=== PATIENT | male | born 1950 | race Caucasian/White ===

== ENCOUNTER 2020-01-24 10:38 | Observation (INO) ==
[2020-01-24] MEDS ORDERED: SODIUM CHLORIDE 0.9% 1,000 ML IV STA (11:40)
[2020-01-24] MEDS ORDERED: PANTOPRAZOLE 40 MG VIAL IV STA (11:40)
[2020-01-24] MEDS ORDERED: ONDANSETRON 4 MG/2 ML VIAL IV STA (11:40)
[2020-01-24 11:55] LABS: Basophils % 0.4 % (0.0-0.8); Eosinophils # 0.1 10*3/uL (0.0-0.87); Hemoglobin 12.9 GM/DL (14.0-18.0); Immature Granulocytes % 0.3 %; Immature Granulocytes Absolute 0.02 #; Lymphocytes # 1.7 10*3/uL (1.4-4.0); Lymphocytes % 22.2 % (21.2-54.2); Mean Corpuscular HGB Conc 33.9 GM/DL (32-36); Mean Corpuscular Volume 94.3 FL (87-102); Mean Platelet Volume 10.2 FL (9.6-12.0); Monocytes % 6.6 % (1.7-12.7); Neutrophils % 69.5 % (38.7-73.9); Platelet Count 180 T/CUMM (130-400); Red Blood Count 4.03 MC/CUMM (3.8-5.5); Red Cell Distribution Width 12.7 % (9.3-17.3); White Blood Count 7.7 T/CUMM (4-12)
[2020-01-24 11:58] LABS: Partial Thromboplastin Time 27.8 SECS (23.9-33.8)
[2020-01-24 12:22] LABS: Albumin 3.7 G/DL (3.4-5.0); Bilirubin,Total 0.6 MG/DL (0.2-1.0); Calcium 9.1 MG/DL (8.5-10.1); Osmolality,Calculated 272.5 MOS/KG (273-304)
[2020-01-24] MEDS ORDERED: ACETAMINOPHEN 325 MG TABLET PO PRN (12:41)
[2020-01-24] MEDS ORDERED: ONDANSETRON 4 MG/2 ML VIAL IV PRN (12:41)
[2020-01-24] MEDS ORDERED: DEXTROSE 50% 25 GM/50 ML VIAL IV PRN (12:41)
[2020-01-24] MEDS ORDERED: GLUCAGON 1 MG VIAL IM PRN (12:41)
[2020-01-24] MEDS: SODIUM CHLORIDE 0.9% 1,000 ML IV SCH ×2 (14:56→20:47)
[2020-01-24 15:19] LABS: Hematocrit 35.6 VOL% (42.0-52.0); Hemoglobin 11.8 GM/DL (14.0-18.0)
[2020-01-24 15:36] LABS: INR 1.1; PT Patient Result 11.4 SECS (9.8-11.9); Partial Thromboplastin Time 27.9 SECS (23.9-33.8)
[2020-01-24] MEDS: INSULIN LISPRO 100 UNIT/ML SUBCUT SCH ×2 (17:03→22:14)
[2020-01-24 20:33] LABS: Hematocrit 32.3 VOL% (42.0-52.0); Hemoglobin 10.8 GM/DL (14.0-18.0)
[2020-01-24] MEDS: DOCUSATE SODIUM 100 MG CAPSULE PO SCH (20:46)
[2020-01-24] MEDS: PANTOPRAZOLE 40 MG VIAL IV SCH (20:47)
[2020-01-25 02:38] LABS: Hematocrit 34.4 VOL% (42.0-52.0); Hemoglobin 11.6 GM/DL (14.0-18.0)
[2020-01-25] MEDS ORDERED: PANTOPRAZOLE 40 MG TABLET PO SCH (06:30)
[2020-01-25] MEDS: INSULIN LISPRO 100 UNIT/ML SUBCUT SCH ×4 (07:48→21:14)
[2020-01-25 08:51] LABS: Hematocrit 32.7 VOL% (42.0-52.0)
[2020-01-25] MEDS: PANTOPRAZOLE 40 MG VIAL IV SCH ×2 (12:41→21:13)
[2020-01-25] MEDS: PIOGLITAZONE 45 MG TABLET PO SCH (12:42)
[2020-01-25] MEDS: ATORVASTATIN 10 MG TABLET PO SCH (12:42)
[2020-01-25] MEDS: lisinopriL 20 MG TABLET PO SCH (12:42)
[2020-01-25] MEDS: GLIMEPIRIDE 4 MG TABLET PO SCH (12:42)
[2020-01-25] MEDS: POTASSIUM CHLORIDE 10 MEQ TABLET PO SCH (12:42)
[2020-01-25] MEDS: DOCUSATE SODIUM 100 MG CAPSULE PO SCH ×2 (12:42→21:13)
[2020-01-25] MEDS: CHOLECALCIFEROL 1,000 UNIT TABLET PO SCH (12:42)
[2020-01-25] MEDS: MULTIVITAMIN (CENTRUM) TABLET PO SCH (12:42)
[2020-01-25] MEDS: SODIUM CHLORIDE 0.9% 1,000 ML IV SCH ×3 (12:43→21:14)
[2020-01-26] MEDS: SODIUM CHLORIDE 0.9% 1,000 ML IV SCH ×3 (05:11→21:07)
[2020-01-26] MEDS: INSULIN LISPRO 100 UNIT/ML SUBCUT SCH ×4 (07:49→20:32)
[2020-01-26] MEDS: DOCUSATE SODIUM 100 MG CAPSULE PO SCH ×2 (08:24→20:28)
[2020-01-26] MEDS: PANTOPRAZOLE 40 MG VIAL IV SCH ×2 (08:24→20:28)
[2020-01-26] MEDS: lisinopriL 20 MG TABLET PO SCH (08:24)
[2020-01-26] MEDS: POTASSIUM CHLORIDE 10 MEQ TABLET PO SCH (08:25)
[2020-01-26] MEDS: MULTIVITAMIN (CENTRUM) TABLET PO SCH (08:25)
[2020-01-26] MEDS: ATORVASTATIN 10 MG TABLET PO SCH (08:25)
[2020-01-26] MEDS: PIOGLITAZONE 45 MG TABLET PO SCH (08:25)
[2020-01-26] MEDS: GLIMEPIRIDE 4 MG TABLET PO SCH (08:25)
[2020-01-26] MEDS: CHOLECALCIFEROL 1,000 UNIT TABLET PO SCH (08:25)
[2020-01-26] MEDS ORDERED: BISACODYL 5 MG TABLET PO ONE (09:24)
[2020-01-26 10:33] LABS: Hematocrit 30.9 VOL% (42.0-52.0); Hemoglobin 10.4 GM/DL (14.0-18.0)
[2020-01-27] MEDS: SODIUM CHLORIDE 0.9% 1,000 ML IV SCH ×2 (03:49→11:23)
[2020-01-27 05:41] LABS: Hematocrit 32.7 VOL% (42.0-52.0)
[2020-01-27] MEDS ORDERED: LIDOCAINE 2% 5 ML VIAL ONE (09:00)
[2020-01-27] MEDS ORDERED: propofoL 200 MG/20 ML VIAL IV ONE (09:00)
[2020-01-27] MEDS: INSULIN LISPRO 100 UNIT/ML SUBCUT SCH ×3 (09:02→16:36)
[2020-01-27] MEDS: MULTIVITAMIN (CENTRUM) TABLET PO SCH (09:03)
[2020-01-27] MEDS: DOCUSATE SODIUM 100 MG CAPSULE PO SCH (09:03)
[2020-01-27] MEDS: GLIMEPIRIDE 4 MG TABLET PO SCH (09:03)
[2020-01-27] MEDS: ATORVASTATIN 10 MG TABLET PO SCH (09:03)
[2020-01-27] MEDS: POTASSIUM CHLORIDE 10 MEQ TABLET PO SCH (09:03)
[2020-01-27] MEDS: PIOGLITAZONE 45 MG TABLET PO SCH (09:03)
[2020-01-27] MEDS: lisinopriL 20 MG TABLET PO SCH (09:04)
[2020-01-27] MEDS: CHOLECALCIFEROL 1,000 UNIT TABLET PO SCH (09:04)
[2020-01-27] MEDS: PANTOPRAZOLE 40 MG VIAL IV SCH (09:15)
[2020-01-27 15:39] VITALS: BP 141/66
== END 2020-01-27 17:47 | disposition home or self-care (01) ==
LOC: N.ED 10:38 → INTOOBSV 11:43 → N.EDINP 11:43 → N.5E 12:40
PROVIDERS: ADMIT Family Medicine; ATTEND Family Medicine

== ENCOUNTER 2021-10-12 03:16 | Observation (INO) ==
[2021-10-12] MEDS ORDERED: PIPERACILLIN/TAZOBACTAM 3,375 MG in SODIUM CHLORIDE 0.9% 100 ML IV STA (03:57)
[2021-10-12] MEDS ORDERED: ONDANSETRON 4 MG/2 ML VIAL IV STA (03:57)
[2021-10-12] MEDS ORDERED: HYDROmorphone 1 MG/1 ML SYRINGE IV STA (03:57)
[2021-10-12 04:21] LABS: Basophils # 0.1 10*3/uL (0.0-0.2); Basophils % 0.4 % (0.0-0.8); Eosinophils # 0.1 10*3/uL (0.0-0.87); Eosinophils % 0.7 % (0.00-10.9); Hematocrit 36.1 VOL% (42.0-52.0); Immature Granulocytes % 1.6 %; Immature Granulocytes Absolute 0.21 #; Lymphocytes # 1.1 10*3/uL (1.4-4.0); Lymphocytes % 8.1 % (21.2-54.2); Mean Corpuscular HGB Conc 33.2 GM/DL (32-36); Mean Corpuscular Volume 93.5 FL (87-102); Monocytes % 7.2 % (1.7-12.7); Platelet Count 205 T/CUMM (130-400); Red Blood Count 3.86 MC/CUMM (3.8-5.5); Red Cell Distribution Width 12.9 % (9.3-17.3); White Blood Count 13.4 T/CUMM (4-12)
[2021-10-12] MEDS ORDERED: SODIUM CHLORIDE 0.9% 1,000 ML IV STA (04:21)
[2021-10-12 04:28] LABS: Albumin 2.8 G/DL (3.4-5.0); Bilirubin,Total 0.4 MG/DL (0.20-1.00); Calcium 8.4 MG/DL (8.5-10.1); Potassium 3.7 MMOL/L (3.5-5.1); Total Protein 6.3 G/DL (6.4-8.2)
[2021-10-12 04:48] LABS: Band Neutrophils 6 % (0-10); Lymphocytes 9 % (20-55); Total Cells Counted 100
[2021-10-12 04:50] LABS: Platelet Estimate Normal
[2021-10-12] MEDS ORDERED: HYDROmorphone 1 MG/1 ML SYRINGE IV PRN (05:37)
[2021-10-12] MEDS ORDERED: GLUCAGON 1 MG VIAL IM PRN (05:37)
[2021-10-12] MEDS ORDERED: ONDANSETRON 4 MG/2 ML VIAL IV PRN ×2 (05:37→14:59)
[2021-10-12] MEDS ORDERED: DEXTROSE 10% 250 ML BAG IV PRN (05:37)
[2021-10-12] MEDS ORDERED: INSULIN REGULAR 100 UNIT/ML SUBCUT SCH (06:00)
[2021-10-12] MEDS: SODIUM CHLORIDE 0.9% 1,000 ML IV SCH ×2 (06:10→17:35)
[2021-10-12] MEDS: INSULIN REGULAR 100 UNIT/ML SUBCUT SCH ×4 (07:46→21:55)
[2021-10-12] MEDS: PANTOPRAZOLE 40 MG TABLET PO SCH (08:59)
[2021-10-12] MEDS: MULTIVITAMIN (CENTRUM) TABLET PO SCH (08:59)
[2021-10-12] MEDS: CHOLECALCIFEROL 1,000 UNIT TABLET PO SCH (09:00)
[2021-10-12] MEDS ORDERED: glipiZIDE 10 MG TABLET PO SCH (09:00)
[2021-10-12] MEDS ORDERED: GLIMEPIRIDE 4 MG TABLET PO SCH (09:00)
[2021-10-12] MEDS: POTASSIUM CHLORIDE 10 MEQ TABLET PO SCH (09:00)
[2021-10-12] MEDS ORDERED: metFORMIN 500 MG TABLET PO SCH (09:00)
[2021-10-12] MEDS ORDERED: PIOGLITAZONE 45 MG TABLET PO SCH (09:00)
[2021-10-12] MEDS: ACETAMINOPHEN 325 MG TABLET PO PRN ×2 (10:00→21:57)
[2021-10-12] MEDS: PIPERACILLIN/TAZOBACTAM 3,375 MG in SODIUM CHLORIDE 0.9% 100 ML IV SCH ×2 (11:17→21:56)
[2021-10-12] MEDS ORDERED: LIDOCAINE 2% 5 ML VIAL ONE (13:24)
[2021-10-12] MEDS ORDERED: ONDANSETRON 4 MG/2 ML VIAL ONE (13:24)
[2021-10-12] MEDS ORDERED: fentaNYL 100 MCG/2 ML VIAL ONE (13:24)
[2021-10-12] MEDS ORDERED: MIDAZOLAM 2 MG/2 ML VIAL ONE (13:24)
[2021-10-12] MEDS ORDERED: propofoL 200 MG/20 ML VIAL IV ONE (13:24)
[2021-10-12] MEDS ORDERED: BUPIVACAINE MPF 0.25% 10 ML VIAL ONE (14:11)
[2021-10-12] MEDS ORDERED: LIDOCAINE 1%/EPI INJ 20 ML VIAL ONE (14:11)
[2021-10-12] MEDS ORDERED: SEVOFLURANE 1 UNIT/15 MINUTE INH ONE (14:37)
[2021-10-12] MEDS: HYDROmorphone 1 MG/1 ML SYRINGE IV PRN ×2 (15:05→15:22)
[2021-10-12] MEDS ORDERED: MELOXICAM 7.5 MG TABLET PO SCH (21:00)
[2021-10-12] MEDS ORDERED: lisinopriL 20 MG TABLET PO SCH (21:00)
[2021-10-12] MEDS ORDERED: INSULIN NPH/REGULAR 70/30 100 UNIT/ML SUBCUT SCH (21:00)
[2021-10-12] MEDS ORDERED: ATORVASTATIN 10 MG TABLET PO SCH (21:00)
[2021-10-12] MEDS ORDERED: ENOXAPARIN 40 MG/0.4 ML SYRINGE SUBCUT SCH (21:00)
[2021-10-12] MEDS ORDERED: ZINC GLUCONATE 50 MG TABLET PO SCH (21:00)
[2021-10-13] MEDS: SODIUM CHLORIDE 0.9% 1,000 ML IV SCH (04:20)
[2021-10-13] MEDS: PIPERACILLIN/TAZOBACTAM 3,375 MG in SODIUM CHLORIDE 0.9% 100 ML IV SCH (04:54)
[2021-10-13 05:03] LABS: Basophils # 0.1 10*3/uL (0.0-0.2); Basophils % 0.4 % (0.0-0.8); Eosinophils # 0.3 10*3/uL (0.0-0.87); Hematocrit 32.1 VOL% (42.0-52.0); Hemoglobin 10.6 GM/DL (14.0-18.0); Immature Granulocytes % 1.2 %; Immature Granulocytes Absolute 0.18 #; Lymphocytes # 1.6 10*3/uL (1.4-4.0); Lymphocytes % 10.5 % (21.2-54.2); Mean Corpuscular Volume 94.7 FL (87-102); Mean Platelet Volume 10.6 FL (9.6-12.0); Monocytes % 6.8 % (1.7-12.7); Neutrophils % 79.1 % (38.7-73.9); Platelet Count 194 T/CUMM (130-400); Red Blood Count 3.39 MC/CUMM (3.8-5.5); Red Cell Distribution Width 13.3 % (9.3-17.3); White Blood Count 14.9 T/CUMM (4-12)
[2021-10-13 05:24] LABS: Band Neutrophils 1 % (0-10); Eosinophils 3 % (0-10); Lymphocytes 6 % (20-55); Platelet Estimate Adequate; Total Cells Counted 100
[2021-10-13 05:26] LABS: Bilirubin,Total 0.6 MG/DL (0.20-1.00); Calcium 8.1 MG/DL (8.5-10.1); Osmolality,Calculated 278.1 MOS/KG (273-304); Potassium 4.5 MMOL/L (3.5-5.1); Total Protein 5.5 G/DL (6.4-8.2)
[2021-10-13] MEDS: MULTIVITAMIN (CENTRUM) TABLET PO SCH (08:26)
[2021-10-13] MEDS: POTASSIUM CHLORIDE 10 MEQ TABLET PO SCH (08:26)
[2021-10-13] MEDS: CHOLECALCIFEROL 1,000 UNIT TABLET PO SCH (08:26)
[2021-10-13] MEDS: PANTOPRAZOLE 40 MG TABLET PO SCH (08:26)
[2021-10-13] MEDS: INSULIN REGULAR 100 UNIT/ML SUBCUT SCH ×2 (08:27→12:12)
[2021-10-13] MEDS ORDERED: CLINDAMYCIN 300 MG CAPSULE PO SCH (12:00)
[2021-10-13 12:34] VITALS: BP 113/57
== END 2021-10-13 13:37 | disposition home or self-care (01) ==
LOC: N.ED 03:16 → N.3E 03:16
PROVIDERS: ADMIT Surgery; ATTEND Surgery

== ENCOUNTER 2021-10-15 18:42 | Inpatient (IN) ==
[2021-10-15 20:15] LABS: Basophils % 0.5 % (0.0-0.8); Eosinophils # 0.3 10*3/uL (0.0-0.87); Eosinophils % 3.3 % (0.00-10.9); Hematocrit 35.2 VOL% (42.0-52.0); Hemoglobin 11.7 GM/DL (14.0-18.0); Immature Granulocytes % 1.8 %; Immature Granulocytes Absolute 0.15 #; Lymphocytes # 1.5 10*3/uL (1.4-4.0); Lymphocytes % 17.2 % (21.2-54.2); Mean Corpuscular HGB Conc 33.2 GM/DL (32-36); Mean Corpuscular Volume 92.6 FL (87-102); Mean Platelet Volume 10.4 FL (9.6-12.0); Monocytes # 0.7 10*3/uL (0.11-0.8); Monocytes % 8.8 % (1.7-12.7); NRBC # 0.02 10*3/uL; Neutrophils % 68.4 % (38.7-73.9); Platelet Count 261 T/CUMM (130-400); Red Cell Distribution Width 13.1 % (9.3-17.3); White Blood Count 8.4 T/CUMM (4-12)
[2021-10-15 20:28] LABS: Albumin 2.4 G/DL (3.4-5.0); Bilirubin,Total 0.4 MG/DL (0.20-1.00); Osmolality,Calculated 272.2 MOS/KG (273-304); Potassium 4.1 MMOL/L (3.5-5.1); Total Protein 6.7 G/DL (6.4-8.2)
[2021-10-15 20:42] LABS: Atypical Lymphocytes Few; Platelet Estimate Normal
[2021-10-15] MEDS ORDERED: HYDROmorphone 1 MG/1 ML SYRINGE IV STA (20:46)
[2021-10-15 21:07] LABS: PT Patient Result 11.1 SECS (10.5-12.0); Partial Thromboplastin Time 33.6 SECS (23.7-32.9)
[2021-10-15 21:15] LABS: Bacteria,Urine Occasional /HPF (Few); Mucus,Urine Occasional /LPF (Occasional); RBC,Urine 1 /HPF (0-4)
[2021-10-15 21:16] LABS: Bilirubin,Urine Negative (Negative); Blood, Urine Negative (Negative); Glucose,Urine (UA) Negative (Negative); Ketones,Urine Negative (Negative); Nitrite,Urine Negative (Negative); Protein,Urine Negative (Negative); Urine Appearance Clear (Clear); Urine Color Yellow (Yellow); Urine Specific Gravity 1.015 (1.001-1.035); Urine Urobilinogen 0.2 eU/dL (<2.0); Urine pH 5.5 (4.5-8.0)
[2021-10-15] MEDS ORDERED: PIPERACILLIN/TAZOBACTAM 3,375 MG in SODIUM CHLORIDE 0.9% 100 ML IV STA (21:44)
[2021-10-15] MEDS ORDERED: GLUCAGON 1 MG VIAL IM PRN (22:13)
[2021-10-15] MEDS ORDERED: DEXTROSE 10% 250 ML BAG IV PRN (22:32)
[2021-10-16] MEDS: SODIUM CHLORIDE 0.9% 1,000 ML IV SCH ×2 (02:20→19:20)
[2021-10-16] MEDS ORDERED: PIPERACILLIN/TAZOBACTAM 3,375 MG in SODIUM CHLORIDE 0.9% 100 ML IV SCH (06:00)
[2021-10-16] MEDS: INSULIN LISPRO 100 UNIT/ML SUBCUT SCH ×4 (07:56→20:43)
[2021-10-16] MEDS ORDERED: metroNIDAZOLE 500 MG TABLET PO SCH (09:00)
[2021-10-16] MEDS: HYDROmorphone 1 MG/1 ML SYRINGE IV PRN ×2 (12:19→20:49)
[2021-10-16] MEDS: cefTRIAXone 2,000 MG in SODIUM CHLORIDE 0.9% 100 ML IV SCH (12:19)
[2021-10-16] MEDS: SODIUM HYPOCHLORITE 0.25% IRRIG 473 ML BOTTLE TOP SCH (12:19)
[2021-10-16] MEDS: glipiZIDE 10 MG TABLET PO SCH (20:42)
[2021-10-16] MEDS: ATORVASTATIN 10 MG TABLET PO SCH (20:42)
[2021-10-16] MEDS: INSULIN NPH/REGULAR 70/30 100 UNIT/ML SUBCUT SCH (20:44)
[2021-10-17] MEDS ORDERED: ONDANSETRON 4 MG/2 ML VIAL IV ONE (02:11)
[2021-10-17] MEDS: HYDROmorphone 1 MG/1 ML SYRINGE IV PRN ×3 (06:26→21:46)
[2021-10-17] MEDS: INSULIN LISPRO 100 UNIT/ML SUBCUT SCH ×4 (08:13→21:45)
[2021-10-17] MEDS: SODIUM HYPOCHLORITE 0.25% IRRIG 473 ML BOTTLE TOP SCH (09:32)
[2021-10-17] MEDS: SODIUM CHLORIDE 0.9% 1,000 ML IV SCH ×2 (09:32→23:59)
[2021-10-17] MEDS: cefTRIAXone 2,000 MG in SODIUM CHLORIDE 0.9% 100 ML IV SCH (10:29)
[2021-10-17] MEDS: glipiZIDE 10 MG TABLET PO SCH ×3 (10:30→21:45)
[2021-10-17] MEDS ORDERED: PANTOPRAZOLE 20 MG TABLET PO PRN (15:30)
[2021-10-17] MEDS ORDERED: PANTOPRAZOLE 40 MG TABLET PO PRN (15:58)
[2021-10-17] MEDS: PANTOPRAZOLE 40 MG VIAL IV SCH (17:59)
[2021-10-17] MEDS: ATORVASTATIN 10 MG TABLET PO SCH (21:45)
[2021-10-17] MEDS: INSULIN NPH/REGULAR 70/30 100 UNIT/ML SUBCUT SCH (21:45)
[2021-10-18 06:51] LABS: Basophils # 0.1 10*3/uL (0.0-0.2); Basophils % 0.8 % (0.0-0.8); Eosinophils # 0.3 10*3/uL (0.0-0.87); Eosinophils % 4.7 % (0.00-10.9); Hematocrit 37.3 VOL% (42.0-52.0); Hemoglobin 12.1 GM/DL (14.0-18.0); Immature Granulocytes % 1.4 %; Immature Granulocytes Absolute 0.09 #; Lymphocytes # 1.7 10*3/uL (1.4-4.0); Lymphocytes % 24.9 % (21.2-54.2); Mean Corpuscular HGB Conc 32.4 GM/DL (32-36); Mean Corpuscular Volume 94.7 FL (87-102); Mean Platelet Volume 9.7 FL (9.6-12.0); Monocytes # 0.5 10*3/uL (0.11-0.8); Monocytes % 7.5 % (1.7-12.7); Neutrophils % 60.7 % (38.7-73.9); Platelet Count 313 T/CUMM (130-400); Red Blood Count 3.94 MC/CUMM (3.8-5.5); White Blood Count 6.6 T/CUMM (4-12)
[2021-10-18 07:33] LABS: Calcium 9.4 MG/DL (8.5-10.1); Osmolality,Calculated 278.5 MOS/KG (273-304)
[2021-10-18] MEDS ORDERED: CEFUROXIME 500 MG TABLET PO SCH (08:00)
[2021-10-18] MEDS: metroNIDAZOLE 500 MG TABLET PO SCH ×2 (08:18→12:19)
[2021-10-18] MEDS: glipiZIDE 10 MG TABLET PO SCH (08:18)
[2021-10-18] MEDS: PANTOPRAZOLE 40 MG VIAL IV SCH (08:19)
[2021-10-18] MEDS: SODIUM HYPOCHLORITE 0.25% IRRIG 473 ML BOTTLE TOP SCH (09:15)
[2021-10-18] MEDS: INSULIN LISPRO 100 UNIT/ML SUBCUT SCH ×2 (09:15→12:20)
[2021-10-18] MEDS: SODIUM CHLORIDE 0.9% 1,000 ML IV SCH (12:05)
[2021-10-18 12:26] VITALS: BP 163/61
== END 2021-10-18 12:44 | disposition home or self-care (01) | DRG 638 ==
LOC: N.ED 18:42 → N.EDINP 22:13 → N.3E 23:38
PROVIDERS: ADMIT Surgery; ATTEND Surgery